=== PATIENT | male | born 1955 | race African-American/Black ===

== ENCOUNTER 2017-09-02 10:30 | Inpatient (IN) | payer MEDICAID ==
[~2017-09-02] VITALS: Ht 175.3 cm; Wt 68.0 kg
[2017-09-02 11:03] LABS: BASOPHILS % 0.6 % (0.0-2.0); EOSINOPHILS % 1.7 % (0.0-5.0); HEMOGLOBIN. 14.6 g/dL (14.0-18.0); LYMPHOCYTES % 10.8 % (20.0-50.0); MEAN CORPUSCULAR HEMOGLOBIN 35.2 pg (28.0-32.0); MEAN CORPUSCULAR VOLUME 103.5 fL (80.0-94.0); MEAN PLATELET VOLUME 8.8 fl (7.4-10.4); MONOCYTES % 4.6 % (2.0-8.0); NEUTROPHILS % 82.3 % (40.0-76.0); PLATELET 217 x1000/uL (130-400); RED BLOOD CELL COUNT 4.16 mill/uL (4.7-6.1)
[2017-09-02 11:10] LABS: INR 1.1; PROTHROMBIN TIME 11.4 sec (9.4-11.6)
[2017-09-02 11:14] LABS: CHLORIDE 103 mEq/L (98-107)
[2017-09-02 12:23] LABS: CLARITY URINE TURBID (CLEAR); COLOR URINE DARK YELLOW (YELLOW); KETONES URINE NEGATIVE (NEGATIVE); LEUKOCYTE ESTERASE URINE 1+ (NEGATIVE); NITRITE URINE POSITIVE (NEGATIVE); OCCULT BLOOD URINE NEGATIVE (NEGATIVE); PH URINE >=9.0 (4.5-8.0); PROTEIN URINE 4+ (NEGATIVE); SPECIFIC GRAVITY URINE 1.025 (1.005-1.030)
[2017-09-02] MEDS ORDERED: MORPHINE SULFATE 4 MG/ML CPJ (NOT FOR IM USE) IV ONE (14:45)
[2017-09-02] MEDS ORDERED: SODIUM CHLORIDE 0.9% 500 ML IV ONE (14:45)
[2017-09-02] MEDS ORDERED: CEFTRIAXONE 2 G PREMIX 50 ML IV ONE (14:45)
[2017-09-02] MEDS ORDERED: CLONIDINE 0.1MG TABLET PO PRN (18:00)
[2017-09-02] MEDS ORDERED: HYDROCODONE/ACETAMINOPHEN 5/325MG TABLET PO PRN (18:00)
[2017-09-02] MEDS ORDERED: IPRATROPIUM/ALBUTEROL 0.5-3(2.5)MG/3ML NEB INH PRN (18:00)
[2017-09-02] MEDS ORDERED: ACETAMINOPHEN 325MG TABLET PO PRN (18:00)
[2017-09-02] MEDS ORDERED: ONDANSETRON HCL 4MG/2ML VIAL IV PRN (18:00)
[2017-09-02] MEDS: ENOXAPARIN 40MG/0.4ML SYR SUBCUT SCH (18:25)
[2017-09-02] MEDS: SODIUM CHLORIDE 0.9% 1,000 ML IV SCH (18:25)
[2017-09-02 23:00] VITALS: BP 116/64
[2017-09-02 23:05] VITALS: BP 116/64
[2017-09-03 04:00] VITALS: BP 110/66
[2017-09-03 06:29] LABS: BASOPHILS % 0.4 % (0.0-2.0); HEMATOCRIT. 34.8 % (42.0-52.0); HEMOGLOBIN. 11.9 g/dL (14.0-18.0); LYMPHOCYTES % 16.8 % (20.0-50.0); MEAN CORPUSCULAR HEMOGLOBIN 34.9 pg (28.0-32.0); MEAN CORPUSCULAR VOLUME 102.3 fL (80.0-94.0); MEAN PLATELET VOLUME 9.4 fl (7.4-10.4); MONOCYTES % 6.8 % (2.0-8.0); PLATELET 164 x1000/uL (130-400)
[2017-09-03 06:35] LABS: CHLORIDE 107 mEq/L (98-107)
[2017-09-03] MEDS: SODIUM CHLORIDE 0.9% 1,000 ML IV SCH (06:36)
[2017-09-03] MEDS ORDERED: PANTOPRAZOLE 40MG DR TABLET PO SCH (06:45)
[2017-09-03 06:48] LABS: HDL CHOLESTEROL 30 mg/dL (40-59); LDL CHOLESTEROL 45 mg/dL (5-100); T4 FREE 1.19 ng/dL (0.76-1.46)
[2017-09-03 08:14] VITALS: BP 106/61
[2017-09-03 10:50] LABS: *AMPHETAMINES SCREEN URINE NEGATIVE (NEGATIVE); *BARBITURATES SCREEN URINE NEGATIVE (NEGATIVE); *BENZODIAZEPINES SCREEN URINE NEGATIVE (NEGATIVE); *COCAINE SCREEN URINE NEGATIVE (NEGATIVE); METHADONE URINE SCREEN NEGATIVE (NEGATIVE)
[2017-09-03 10:51] LABS: CANNABINOID URINE SCREEN NEGATIVE (NEGATIVE); OPIATES URINE SCREEN PRESUMTIVE POSITIVE (NEGATIVE); PHENCYCLIDINE URINE SCREEN NEGATIVE (NEGATIVE)
[2017-09-03 11:55] VITALS: BP 105/64
[2017-09-03 14:43] VITALS: BP 105/64
[2017-09-03] MEDS ORDERED: CEFTRIAXONE 1 G PREMIX 50 ML IV SCH (15:00)
[2017-09-03 15:30] VITALS: BP 105/64
[2017-09-03] MEDS: ENOXAPARIN 40MG/0.4ML SYR SUBCUT SCH (18:00)
== END 2017-09-03 18:44 | disposition home or self-care (01) | DRG 466 ==
LOC: ER 13:07 → 5WST 15:00 → SUPCPDRO 17:49 → ENRESERV 19:51 → 8WST 22:55
PROVIDERS: ADMIT Internal Medicine; ATTEND Internal Medicine
DX: T83.018A Breakdown (mechanical) of other urinary catheter, initial encounter (principal); I69.351 Hemiplegia and hemiparesis following cerebral infarction affecting right dominant side; I10 Essential (primary) hypertension; F17.210 Nicotine dependence, cigarettes, uncomplicated; H54.62 Unqualified visual loss, left eye, normal vision right eye; N39.0 Urinary tract infection, site not specified; N40.0 Benign prostatic hyperplasia without lower urinary tract symptoms; D72.829 Elevated white blood cell count, unspecified; Y83.8 Other surgical procedures as the cause of abnormal reaction of the patient, or of later complication, without mention of misadventure at the time of the procedure; Y92.89 Other specified places as the place of occurrence of the external cause
CPT/HCPCS: 36415; 74176; 80053; 80061; 80305; 81003; 83605; 83690; 84153; 84439; 84443; 85025; 85610; 87040; 87086; 96361; 96365; 96375; 99285; J0696; J1650; J2270; J7030; J7040

== ENCOUNTER 2017-09-03 21:07 | Emergency (ER) | payer MEDICAID ==
[~2017-09-03] VITALS: Ht 177.8 cm; Wt 69.0 kg
[2017-09-03 22:40] VITALS: BP 117/73
== END 2017-09-03 22:55 | disposition home or self-care (01) ==
LOC: ER 22:10
DX: T83.9XXA Unspecified complication of genitourinary prosthetic device, implant and graft, initial encounter (principal); I10 Essential (primary) hypertension; F17.200 Nicotine dependence, unspecified, uncomplicated; Z86.73 Personal history of transient ischemic attack (TIA), and cerebral infarction without residual deficits; Y92.89 Other specified places as the place of occurrence of the external cause
CPT/HCPCS: 51702; 99284

== ENCOUNTER 2017-12-05 09:15 | Emergency (ER) | payer MEDICAID ==
[~2017-12-05] VITALS: Ht 170.2 cm; Wt 69.0 kg
[2017-12-05 11:35] LABS: CLARITY URINE TURBID (CLEAR); COLOR URINE ORANGE (YELLOW); KETONES URINE NEGATIVE (NEGATIVE); LEUKOCYTE ESTERASE URINE 3+ (NEGATIVE); NITRITE URINE POSITIVE (NEGATIVE); OCCULT BLOOD URINE 3+ (NEGATIVE); PROTEIN URINE 2+ (NEGATIVE); SPECIFIC GRAVITY URINE 1.018 (1.005-1.030)
[2017-12-05] MEDS ORDERED: LIDOCAINE HCL 1% 20ML VIAL (Pyxis) INJ INFIL ONE (12:00)
[2017-12-05] MEDS ORDERED: CEFTRIAXONE SODIUM 1 G/VIAL IM ONE (12:00)
[2017-12-05 12:05] VITALS: BP 96/69
[2017-12-05] MEDS ORDERED: LIDOCAINE HCL/PF 1% 10 MG/ML 5ML VIAL INL NR (12:15)
== END 2017-12-05 12:35 | disposition home or self-care (01) ==
LOC: ER 11:53
DX: N39.0 Urinary tract infection, site not specified (principal); R33.9 Retention of urine, unspecified; I10 Essential (primary) hypertension; F17.200 Nicotine dependence, unspecified, uncomplicated; Z96.0 Presence of urogenital implants
CPT/HCPCS: 51702; 81003; 87077; 87086; 87186; 96372; 99284; J0696; J3490

== ENCOUNTER 2017-12-06 16:49 | Emergency (ER) | payer MEDICAID ==
[~2017-12-06] VITALS: Ht 177.8 cm; Wt 72.0 kg
[2017-12-06 23:00] VITALS: BP 113/54
== END 2017-12-06 23:45 | disposition home or self-care (01) ==
LOC: ER 20:11
DX: Z43.6 Encounter for attention to other artificial openings of urinary tract (principal); N32.89 Other specified disorders of bladder; R33.9 Retention of urine, unspecified; F17.210 Nicotine dependence, cigarettes, uncomplicated; Z86.73 Personal history of transient ischemic attack (TIA), and cerebral infarction without residual deficits
CPT/HCPCS: 51702; 99284